=== PATIENT | female | born 1955 | race Caucasian/White ===

== ENCOUNTER → 2019-07-03 | Outpatient (CLI) | payer BC ==
[~2019-07-03] MED LIST: REGADENOSON 0.4 MG/5 ML DISP.SYRIN. IV ONE
--- NOTE | 2019-07-03 15:19 | PCVCIMAG ---
APPROVED REPORT Study performed: 07/03/2019 08:57:43 EXAM: Comprehensive 2D, Doppler, and color-flow Echocardiogram Patient Location: Echo lab Status: routine BSA: 1.79 HR: 68 bpmBP: 144/82 mmHg Rhythm: NSR Other Information Study Quality: Adequate Risk Factors: Cardiac Risk Factors: Smoking, HTN Indications Murmur Dyspnea 2D Dimensions IVSd: 12.60 (7-11mm) LVDd: 39.23 mm PWd: 10.65 (7-11mm)Ascending Ao: 33.35 (22-36mm) LVDs: 30.91 (25-40mm) Left Atrium: 37.99 (27-40mm) Aortic Root: 28.53 mm LV Single Plane 4CH: 56.43 % LV Single Plane 2CH: 68.83 % Biplane EF: 64.0 % Volumes Left Atrial Volume (Systole) Single Plane 4CH: 73.20 mLSingle Plane 2CH: 63.02 mL LA ESV Index: 39.00 mL/m2 Aortic Valve AoV Peak Gelacio.: 1.80 m/s AO Peak Gr.: 12.91 mmHgLVOT Max P.54 mmHg LVOT Max V: 1.18 m/s Mitral Valve E/A Ratio: 0.9 MV Decel. Time: 255.41 ms MV E Max Gelacio.: 1.02 m/s MV A Gelacio.: 1.13 m/s IVRT: 100.35 ms Pulmonary Valve PV Peak Gelacio.: 1.04 m/sPV Peak Gr.: 4.29 mmHg Pulmonary Vein P Vein S: 0.40 m/sP Vein A: 0.30 m/s P Vein D: 0.60 m/sP Vein A Dur.: 124.6 msec P Vein S/D Ratio: 0.67 Tricuspid Valve TR Peak Gelacio.: 2.76 m/s TR Peak Gr.: 30.43 mmHg TV Vmax: 0.53 m/s Left Ventricle The left ventricle is normal size. There is normal LV segmental wall motion. Mild concentric left ventricular hypertrophy. Left ventricular systolic function is normal. The left ventricular ejection fraction is within the normal range. LVEF is 60-65%. Grade I - abnormal relaxation pattern. Right Ventricle The right ventricle is normal size. The right ventricular systolic function is normal. Atria Left atrium is mildly dilated. The right atrium size is normal. Aortic Valve Mild aortic valve sclerosis. No aortic regurgitation is present. There is no aortic valvular stenosis. Mitral Valve The mitral valve is normal in structure. Mild to moderate mitral regurgitation. No evidence of mitral valve stenosis. Tricuspid Valve The tricuspid valve is normal in structure. Mild tricuspid regurgitation with PAP of 37 mmHg. Pulmonic Valve The pulmonary valve is normal in structure. There is no pulmonic valvular regurgitation. Great Vessels The aortic root is normal in size. IVC is normal in size and collapses >50% with inspiration. Pericardium There is no pericardial effusion. There is no pleural effusion. <Conclusion> The left ventricle is normal size. LVEF is 60-65%. Left atrium is mildly dilated. Mild aortic valve sclerosis. The mitral valve is normal in structure. Mild to moderate mitral regurgitation. The tricuspid valve is normal in structure. Mild tricuspid regurgitation with PAP of 37 mmHg. The pulmonary valve is normal in structure. There is no pericardial effusion.
--- NOTE | 2019-07-04 12:20 | PCVCIMAG ---
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 Time of rest injection: 0940 Date: 07/03/2019 Administration Route: IV Administration Site: Right Hand Pharmacologic Stress Pharmacologic stress test was performed by injecting Regadenoson 0.4 mg IV push over 10-15 seconds immediately followed by the intravenous injection of 31.2 mCi of Tc-99m Sestamibi. Time of stress injection: 1100 Date: 07/03/2019 Administration Route: IV Administration Site: Right Hand Gated Stress SPECT was performed 45 minutes after stress injection. The images were gated to evaluate regional wall motion and calculate left ventricular ejection fraction. Stress Test Details Stress Test: Pharmacologic stress testing performed using 0.4 mg of regadenoson per 5 mL given IV over 10 seconds. Reason for pharmacologic stress test: Right below the knee amputation. HRMax Heart Rate (APMHR): 156 bpm Resting HR: 69 bpmTarget HR (85% APMHR): 132 bpm Max HR Achieved: 96 bpm % of APMHR: 61 Recovery HR: 92 bpm BP Resting BP: 173/79 mmHg Max BP: 208/88 mmHg Recovery BP: 154/72 mmHg ECG Resting ECG: Sinus Rhythm Stress ECG: Sinus Tachycardia Arrhythmia: None Recovery ECG: Sinus Rhythm Clinical Reason for Termination: Completed protocol Stress Symptoms: Lightheaded Exercise duration: min 55 sec Symptoms resolved with caffeine. Stress ECG Conclusion 1. Adequate response to intravenous Lexiscan 2. Inadequate heart rate for ECG diagnosis Study Data Post stress, the left ventricular ejection was 70%.. SSS: 0 SRS: 1 SDS: 0 TID = 1.33. Perfusion There is a medium area of moderately reduced uptake in the basal and mid segment of the inferolateral wall which is seen on the stress images and improves on the resting images. This area thickens and moves normally and is most consistent with ischemia although attenuation cannot be excluded. Wall Motion Normal left ventricular wall motion. Nuclear Conclusion ECG Findings: non-diagnostic Clinical Findings: negative for ischemia Nuclear Findings: positive for ischemia low attenuation cannot be excluded Exercise Capacity: not assessed Left Ventricular Function: normal 1. Intermediate risk study with the presence of improved photopenia at rest in the inferolateral wall 2. Post exercise left ventricular ejection fraction of 70% .wall motion abnormalities <Conclusion> 1. Adequate response to intravenous Lexiscan 2. Inadequate heart rate for ECG diagnosis
== END | disposition home or self-care (01) ==
LOC: PCVCIMAG 09:05
PROVIDERS: ATTEND Internal Medicine
DX: I08.3 Combined rheumatic disorders of mitral, aortic and tricuspid valves (principal); I11.9 Hypertensive heart disease without heart failure; F17.200 Nicotine dependence, unspecified, uncomplicated
CPT/HCPCS: 78452; 93017; 93306; A9500; J2785